=== PATIENT | female | born 1960 | race Caucasian/White ===

== ENCOUNTER 2020-05-28 13:29 | Outpatient (CLI) | payer BC, SELFPAY ==
--- NOTE | 2020-05-28 13:34 | MM_ITS ---
WS: [id number] BILATERAL SCREENING DIGITAL MAMMOGRAM WITH CAD HISTORY: SCREENING COMPARISON: 05/22/2019, 05/09/2018 and 05/04/2017 Bilateral CC and MLO views submitted. Computer aided detection analyzed. Breast composition: There are scattered areas of fibroglandular density. No suspicious masses, microc alcifications or architectural distortion. Asymmetries in each breast are stable since 2017. Benign c alcifications in each breast. MM/[place] [id number] IMPRESSION: BI-RADS: 2-Benign FOLLOW UP: 1 Year Follow-up
== END 2020-05-28 13:30 | disposition home or self-care (01) ==
LOC: RADSHAW 13:33
PROVIDERS: PCP Internal Medicine; Visit Provider Internal Medicine
DX: Z12.31 Encounter for screening mammogram for malignant neoplasm of breast (principal)
CPT/HCPCS: 77067

== ENCOUNTER 2021-07-29 11:36 | Outpatient (CLI) | payer OTHER, SELFPAY ==
--- NOTE | 2021-07-29 11:46 | MM_ITS ---
WS: [id number] BILATERAL SCREENING DIGITAL MAMMOGRAM WITH CAD HISTORY: SCREENING COMPARISON: 05/28/2020, 05/22/2019 and 05/09/2018 Bilateral CC and MLO views submitted. Computer aided detection analyzed. Breast composition: There are scattered areas of fibroglandular density. No suspicious masses, microc alcifications or architectural distortion. Asymmetries and calcifications are stable. MM/[place] [id number] IMPRESSION: BI-RADS: 2-Benign FOLLOW UP: 1 Year Follow-up
== END 2021-07-29 11:37 | disposition home or self-care (01) ==
PROVIDERS: PCP Nurse Practitioner Family; Visit Provider Nurse Practitioner Family
DX: Z12.31 Encounter for screening mammogram for malignant neoplasm of breast (principal)
CPT/HCPCS: 77067

== ENCOUNTER 2022-08-27 12:23 | Outpatient (CLI) | payer OTHER, SELFPAY ==
--- NOTE | 2022-08-27 13:00 | MM_ITS ---
WS: [id number] BILATERAL 3D TOMOSYNTHESIS DIGITAL SCREENING MAMMOGRAPHY WITH CAD CLINICAL INFORMATION: SCREENING HISTORY: Screening mammogram. No current complaints. COMPARISON: July 29, 2021 TECHNIQUE: Bilateral CC and MLO views. FINDINGS: Scattered fibroglandular densities bilaterally. No suspicious focal mass, asymmetry, calcifications, or architectural distortion. No evidence of malignancy. Incidental punctate and lucent center calcifi cations. MM/[place] [id number] IMPRESSION: BI-RADS: 2-Benign FOLLOW UP: 1 Year Follow-up Recommend return to annual screening mammography.
== END 2022-08-27 12:24 | disposition home or self-care (01) ==
LOC: RAD 12:29
PROVIDERS: PCP Nurse Practitioner Family; Visit Provider Pediatrics
DX: Z12.31 Encounter for screening mammogram for malignant neoplasm of breast (principal)
CPT/HCPCS: 77063; 77067

== ENCOUNTER 2023-09-02 11:31 | Outpatient (CLI) | payer OTHER, SELFPAY ==
--- NOTE | 2023-09-02 11:34 | MM_ITS ---
WS: [id number] BILATERAL SCREENING DIGITAL TOMOSYNTHESIS MAMMOGRAM WITH CAD HISTORY: SCREENING COMPARISON: 08/27/2022, 07/29/2021 and 05/28/2020 Bilateral CC and MLO views with tomosynthesis and synthetic mammography submitted. Computer aided det ection analyzed. Breast composition: There are scattered areas of fibroglandular density. No suspicious masses, microc alcifications or architectural distortion. Asymmetry in the lateral RIGHT breast is stable. Benign co arse calcifications LEFT breast. IMPRESSION: MM/[place] [id number] BI-RADS: 2-Benign FOLLOW UP: 1 Year Follow-up
== END 2023-09-02 11:32 | disposition home or self-care (01) ==
LOC: RAD 11:32
PROVIDERS: PCP Family Medicine; Visit Provider Family Medicine
DX: Z12.31 Encounter for screening mammogram for malignant neoplasm of breast (principal)
CPT/HCPCS: 77063; 77067

== ENCOUNTER → 2023-10-12 15:22 | Outpatient (BNVA) | payer OTHER, SELFPAY | PROVIDERS: PCP Family Medicine; Referring Provider Family Medicine; Visit Provider Specialist | DX: M25.522 Pain in left elbow | CPT/HCPCS: 73080 ==

== ENCOUNTER 2024-01-20 11:05 | Outpatient (CLI) | payer OTHER, SELFPAY ==
--- NOTE | 2024-01-20 11:13 | CT_ITS ---
WS: [id number] LDCT LUNG CANCER SCREENING HISTORY: NICOTINE DEPENDENCE,CIGARETTES TECHNIQUE: Axial imaging performed from the apices to 1 cm below the costophrenic angles. Coronal and sagittal reformats are submitted with axial MIP series. All CT scans at [facility] use at least one of these dose optimization techniques: automated exposure control; mA and/or kV adjustment per patient size (includes targeted exams where dose is matched to clinical indication); or iterativ e reconstruction. DLP: 44.80 mGy.cm DIvol: Mean CTDIvol: 0.70 (mGy) COMPARISON: None available. Diagnostic quality: Satisfactory Lungs: Lungs are well aerated. Mild chronic emphysema. No mass or pulmonary nodule. No pneumonia. Per ifissural nodule along the inferior RIGHT major fissure. There is an additional subpleural nodule ant erior LEFT lower lobe. Heart: Normal size heart with no pericardial effusion.. Other findings: Mild atherosclerosis aorta. No adenopathy. Prior RIGHT thyroidectomy. Surgical clips in the RIGHT thyroid bed. Small hiatal hernia. CT/CT lung screening [id number] IMPRESSION: LUNG-RADS: 2-Benign Appearance or Behavior FOLLOW UP: 12 Month: Continue annual screening with LDCT OTHER FINDINGS (S MODIFIER): None.
== END 2024-01-20 11:06 | disposition home or self-care (01) ==
LOC: RAD 11:06
PROVIDERS: PCP Family Medicine; Visit Provider Family Medicine
DX: Z12.2 Encounter for screening for malignant neoplasm of respiratory organs (principal); F17.210 Nicotine dependence, cigarettes, uncomplicated; J43.9 Emphysema, unspecified; R91.8 Other nonspecific abnormal finding of lung field; Z98.890 Other specified postprocedural states; K44.9 Diaphragmatic hernia without obstruction or gangrene
CPT/HCPCS: 71271

== ENCOUNTER 2024-03-21 11:48 | Day surgery (SDC) | payer OTHER, SELFPAY ==
[2024-03-21 12:10] VITALS: BP 103/79; PULSE 80; RESP 16; TEMP 36.3; O2SAT 97; BMI 18.8
[2024-03-21] MEDS: sodium chloride 0.9% 1,000 ML 30 ML IV (12:34)
--- NOTE | 2024-03-21 12:57 | ANES.PREANE2 ---
Pre-Anesthetic Assessment Height/Weight: Height 5 ft 4 in Weight 110 lb Temp Pulse Resp BP Pulse Ox O2 Del Method 97.3 F L 80 16 103/79 97 Room Air 03/21/24 12:10 03/21/24 12:10 03/21/24 12:10 03/21/24 12:10 03/21/24 12:10 03/21/24 12:10 Preop Diagnosis: GI screening Operation Date: 03/21/24 13:00 Proposed Procedures p EGD - 54473, 40951 G0105, R19.5, K21.9(Not Applicable) - Clinton Platt DO s Colonoscopy(Not Applicable) - Clinton Platt DO Was Beta Enriqueta taken within 24 hours: N/A Was Clonidine taken within 24 hours: N/A Last intake: Intake Last Liquid Date 03/20/24 Last Liquid Time 22:30 Last Solid Date 03/19/24 Last Solid Time 19:30 Social No alcohol and No tobacco Exam alert, oriented x 3, clear to auscultation bilaterally and regular rate & rhythm Airway Submandibular: within normal limits Cervical ROM: within normal limits Mallampati: Class II Dentition: full Anesthetic Plan ASA status: 2 Anesthesia: MAC Other: No prior issues with anesthesia NPO since yesterday GERD, not controlled with current regimen Patient also takes atenolol and diltiazem Holter monitor in 2020 showing sinus rhythm Medications/Allergies Home Medications Medication Instructions Recorded Confirmed Last Taken Type apremilast 30 mg tablet (Otezla) 30 mg PO DAILY 01/26/24 03/21/24 03/20/24 History atenolol 25 mg tablet 25 mg PO BID 01/26/24 03/21/24 03/21/24 History diltiazem HCl 60 mg 60 mg PO BID 01/26/24 03/21/24 03/21/24 History capsule,extended release 12 hr loratadine 10 mg tablet (Claritin) 10 mg PO DAILY 01/26/24 03/21/24 03/20/24 History psyllium husk 0.4 gram capsule 0.4 g PO DAILY 01/26/24 03/19/24 03/19/24 History (Fiber (psyllium husk)) cholecalciferol (vitamin D3) 25 25 mcg PO DAILY 03/19/24 03/21/24 03/20/24 History mcg (1,000 unit) capsule (Vitamin D3) Allergies Allergy/AdvReac Type Severity Reaction Status Date / Time iodine Allergy Intermediate ADR-Nausea Verified 01/26/24 14:25 Current Medications Generic Name Dose Route Start Last Admin Trade Name Freq PRN Reason Stop Dose Admin Sodium Chloride 1,000 mls @ 30 mls/hr 03/21/24 12:00 03/21/24 12:34 Sodium Chloride 0.9% IV 03/22/24 11:59 30 mls/hr .Q24H RIAN Administration PFSH Anesthesia Medical History (Updated 01/26/24 @ 15:05 by Clinton Platt DO) Hx of cataract right eye Surgical History (Updated 01/26/24 @ 15:05 by lCinton Platt DO) Hx of colonoscopy 10 years ago History of esophagogastroduodenoscopy (EGD) Hx of thyroidectomy right side Hx of elbow surgery Hx of knee surgery Hx of carpal tunnel repair Family History Father Cancer unknown Grandmother Cancer breast then into bone Social History Smoking and tobacco/nicotine status: current every day tobacco/nicotine user cigarettes Data Anesthesia Cardiac Studies: Holter Monitor 10/15/20
--- NOTE | 2024-03-21 13:36 | PM.HP ---
Providers/Chief Complaint Primary Care Provider: Mary Covington DO Chief Complaint: R19.5, K21.9 History of Present Illness Leigha Sorenson is a 63 year old female Review of Systems General: Reports: 10 or more systems reviewed and unremarkable except in HPI and below Medications/Allergies Home Medications Medication Instructions Recorded Confirmed Last Taken Type apremilast 30 mg tablet (Otezla) 30 mg PO DAILY 01/26/24 03/21/24 03/20/24 History atenolol 25 mg tablet 25 mg PO BID 01/26/24 03/21/24 03/21/24 History diltiazem HCl 60 mg 60 mg PO BID 01/26/24 03/21/24 03/21/24 History capsule,extended release 12 hr loratadine 10 mg tablet (Claritin) 10 mg PO DAILY 01/26/24 03/21/24 03/20/24 History psyllium husk 0.4 gram capsule 0.4 g PO DAILY 01/26/24 03/19/24 03/19/24 History (Fiber (psyllium husk)) cholecalciferol (vitamin D3) 25 25 mcg PO DAILY 03/19/24 03/21/24 03/20/24 History mcg (1,000 unit) capsule (Vitamin D3) Allergies Allergy/AdvReac Type Severity Reaction Status Date / Time iodine Allergy Intermediate ADR-Nausea Verified 01/26/24 14:25 PFSH Acute PFSH: Medical History (Updated 01/26/24 @ 15:05 by Clinton Platt DO) Hx of cataract right eye Surgical History (Updated 01/26/24 @ 15:05 by Clinton Platt DO) Hx of colonoscopy 10 years ago History of esophagogastroduodenoscopy (EGD) Hx of thyroidectomy right side Hx of elbow surgery Hx of knee surgery Hx of carpal tunnel repair Family History Father Cancer unknown Grandmother Cancer breast then into bone Social History Smoking and tobacco/nicotine status: current every day tobacco/nicotine user cigarettes Vitals/I&O/Wt Last Vital Signs Temp 97.3 F L 03/21/24 12:10 Pulse 80 03/21/24 12:10 Resp 16 03/21/24 12:10 BP 103/79 03/21/24 12:10 Pulse Ox 97 03/21/24 12:10 O2 Del Method Room Air 03/21/24 12:10 Weight last 48 hrs Weight 110 lb A&P Assessment and plan (1) Positive colorectal cancer screening using Cologuard test: (2) GERD (gastroesophageal reflux disease): Plan EGD and colonoscopy Attestations Medical Necessity Statement*: Home Coding Level of Care Code Acute Code for Chg Fwd Diagnoses Positive colorectal cancer screening using Cologuard test R19.5 GERD (gastroesophageal reflux disease) K21.9
[2024-03-21 14:10] VITALS: BP 134/66; PULSE 82; RESP 16; TEMP 36.6; O2SAT 97
--- NOTE | 2024-03-21 14:43 | ANE.PACU2 ---
Inpatient post-anesthesia follow up: Airway intact: Yes Vital signs: Temperature 98 F Pulse Rate 82 Respiratory Rate 16 Blood Pressure 134/66 Pulse Oximetry 97 Oxygen Delivery Me thod Room Air Oxygen Flow Rate Fraction of Inspir ed Oxygen Hydration adequate: Yes Nausea and vomiting: No Pain level: 1 Mental status: Baseline
== END 2024-03-21 14:43 | disposition home or self-care (01) ==
PROVIDERS: PCP Family Medicine; Visit Provider Surgery
PROC: 0DJ08ZZ Inspection of Upper Intestinal Tract, Via Natural or Artificial Opening Endoscopic (ICD-10-PCS; CPT 43235; principal; 2024-03-21 13:00)
PROC: 0DJD8ZZ Inspection of Lower Intestinal Tract, Via Natural or Artificial Opening Endoscopic (ICD-10-PCS; CPT 45378; 2024-03-21 13:00)
DX: Z12.11 Encounter for screening for malignant neoplasm of colon (principal); K21.9 Gastro-esophageal reflux disease without esophagitis; K21.00 Gastro-esophageal reflux disease with esophagitis, without bleeding; K57.30 Diverticulosis of large intestine without perforation or abscess without bleeding; K52.9 Noninfective gastroenteritis and colitis, unspecified; K20.90 Esophagitis, unspecified without bleeding; K29.80 Duodenitis without bleeding; F17.210 Nicotine dependence, cigarettes, uncomplicated
CPT/HCPCS: 43239; 45380; 88305; J2704; J7030

== ENCOUNTER 2024-04-05 14:32 | Outpatient (CLI) | payer OTHER, SELFPAY ==
[2024-04-05 15:49] LABS: C.Diff PCR (Lab) NEGATIVE (Negative)
== END 2024-04-05 14:33 | disposition home or self-care (01) ==
LOC: LAB 14:34
PROVIDERS: PCP Family Medicine; Visit Provider Surgery
DX: R19.7 Diarrhea, unspecified (principal)
CPT/HCPCS: 87177; 87209; 87493

== ENCOUNTER 2024-10-05 11:13 | Outpatient (CLI) | payer OTHER, SELFPAY ==
--- NOTE | 2024-10-05 11:18 | MM_ITS ---
WS: [id number] BILATERAL 3D TOMOSYNTHESIS DIGITAL SCREENING MAMMOGRAPHY WITH CAD CLINICAL INFORMATION: SCREENING HISTORY: Screening mammogram. No current complaints. COMPARISON: 2023 TECHNIQUE: Bilateral CC and MLO views. FINDINGS: Scattered fibroglandular densities bilaterally. No suspicious focal mass, asymmetry, calcifications, or architectural distortion. No evidence of malignancy. Punctate and lucent centered calcifications. MM/MM scr tomosynthesis [id number] IMPRESSION: DENSITY: There are scattered areas of fibroglandular density. BI-RADS: 2 - Benign. FOLLOW UP: 1 Year Follow-up Recommend return to annual screening mammography.
== END 2024-10-05 11:14 | disposition home or self-care (01) ==
PROVIDERS: PCP Family Medicine; Visit Provider Family Medicine
DX: Z12.31 Encounter for screening mammogram for malignant neoplasm of breast (principal); R92.323 Mammographic fibroglandular density, bilateral breasts; R92.1 Mammographic calcification found on diagnostic imaging of breast
CPT/HCPCS: 77063; 77067

== ENCOUNTER 2025-02-01 10:50 | Outpatient (CLI) | payer OTHER, SELFPAY ==
--- NOTE | 2025-02-01 10:56 | CT_ITS ---
WS: [id number] LDCT LUNG CANCER SCREENING TECHNIQUE: Noncontrast CT of the chest with coronal and sagittal reformatted images. CLINICAL INFORMATION: NICOTINE DEPENDENCE,CIGARETTES COMPARISON: CT 01/20/2024 DLP: 45.01 mGy.cm DIvol: Mean CTDIvol: 0.70 (mGy) All CT scans at [facility] use at least one of these dose optimization techniques: automated exposure control; mA and/or kV adjustment per patient size (includes targeted exams where dose is matched to clinical indication); or iterative reconstruction. FINDINGS: Chronic emphysematous changes. Perifissural nodule along the RIGHT major fissure. Tiny subpleural nodule anterior LEFT lower lobe. Tiny nodule RIGHT upper lobe anteriorly Aortic calcification. Prior RIGHT thyroidectomy. Surgical clips RIGHT thyroid bed. Small esophageal hiatal hernia. CT/CT lung screening [id number] IMPRESSION: LUNG-RADS: 2-Benign Appearance or Behavior FOLLOW UP: 12 Month: Continue annual screening with LDCT
--- NOTE | 2025-02-01 10:56 | CT_ITS ---
WS: [id number] CT ABDOMEN AND PELVIS WITH CONTRAST HISTORY: GENERALIZED ABDOMINAL PAIN/BLOATING TECHNIQUE: Imaging performed of the abdomen and pelvis with IV contrast. Single phase imaging of the abdomen. Coronal and sagittal reformats are submitted. All CT scans at [facility] use at least one of these dose optimization techniques: automated exposure control; mA and/or kV adjustment per patient size (includes targeted exams where dose is matched to clinical indication); or iterative reconstruction. IV CONTRAST: Omnipaque 350; 100 mL IV. Oral contrast: Yes. DLP: 248.43 mGy.cm COMPARISON: None available. Lower thorax: Lung bases are clear. Heart is normal size. No hiatal hernia. Liver/biliary system: Normal size with no intrahepatic dilatation. Gallbladder: Normal. No gallstones or wall thickening. No pericholecystic fluid. Pancreas: Normal size pancreas and pancreatic duct. No adjacent inflammation. Spleen: Normal size spleen. No mass or infarct. Adrenal glands: Normal. Right kidney: Normal. Left kidney: Normal. Aorta: Mild atherosclerosis with no aneurysm. Lymphadenopathy: None. Free fluid: None. GI tract: Mild gastric wall thickening may be due to under distention. No discrete mass. Small hiatal hernia. No small bowel obstruction. Normal appendix. Lipomatous changes at the ileocecal valve. No colitis. Abdominal wall: Unremarkable abdominal wall. No hernia. Pelvis: No free fluid or adenopathy within the pelvis. Well distended urinary bladder. Bones: Unremarkable. CT/CT abdomen pelvis w con* [id number] IMPRESSION: 1. No GI tract obstruction or colitis. 2. Gastric wall thickening involving the fundus of the stomach but no discrete mass or abnormal enhancement. May in part be due to under distention. If furth er evaluation is necessary endoscopy may be necessary. 3. No ascites or adenopathy. 4. No renal obstruction.
[2025-02-01] MEDS: iohexol 350 mg/mL 500 mL Btl (per mL) IV (11:17)
[2025-02-01] MEDS: iohexol 350 mg/mL 500 mL Btl (per mL) PO (11:18)
[2025-02-01 11:45] LABS: Blood Urea Nitrogen 5 mg/dL (8-23)
== END 2025-02-01 10:51 | disposition home or self-care (01) ==
LOC: RAD 10:52
PROVIDERS: PCP Family Medicine; Visit Provider Family Medicine
DX: Z12.2 Encounter for screening for malignant neoplasm of respiratory organs (principal); F17.210 Nicotine dependence, cigarettes, uncomplicated; J43.8 Other emphysema; I35.8 Other nonrheumatic aortic valve disorders; E89.0 Postprocedural hypothyroidism; K44.9 Diaphragmatic hernia without obstruction or gangrene; Z97.8 Presence of other specified devices; K31.89 Other diseases of stomach and duodenum
CPT/HCPCS: 71271; 74177; 82565; 84520